=== PATIENT | male | born 1970 | race Caucasian/White ===

== ENCOUNTER 2019-02-10 22:40 | Emergency (ER) | payer MEDICAID ==
[~2019-02-10] VITALS: Ht 172.7 cm; Wt 73.8 kg
[~2019-02-10 22:40] MED LIST: MECL12.574 PO
[2019-02-10 22:52] VITALS: Ht 172.7 cm; Wt 73.8 kg
[2019-02-11] MEDS ORDERED: SOD CHLORIDE 0.9% 1,000 ML IV STA (01:46)
[2019-02-11] MEDS ORDERED: MECLIZINE 12.5 MG TAB PO ONE (02:00)
[2019-02-11 03:42] VITALS: BP 116/72; PULSE 76; RESP 14
== END 2019-02-11 03:42 | disposition home or self-care (01) ==
LOC: E/R 22:40
DX: R42 Dizziness and giddiness (principal); R40.2142 Coma scale, eyes open, spontaneous, at arrival to emergency department; R40.2362 Coma scale, best motor response, obeys commands, at arrival to emergency department; R40.2252 Coma scale, best verbal response, oriented, at arrival to emergency department
CPT/HCPCS: 36415; 80048; 80307; 84484; 85025; 93005; J7030; Z7502; Z7610